=== PATIENT | female | born 1995 | race Hispanic/Latino ===

== ENCOUNTER 2019-10-13 08:33 | Outpatient (CLI) | payer BC ==
--- NOTE | 2019-10-13 10:32 | ULT ---
ULTRASOUND RIGHT BREAST: HISTORY: Breast mass. COMPARISON: Examination from 2016. FINDINGS: Real-time navarrete scale evaluation right breast 1 o'clock was performed. The width of the mass of the right breast 1 o'clock 4 cm from the nipple has decreased now measuring 2.7 cm, previously 2.8 cm. The depth of it has slightly increased now measuring up to 1.7 cm, previo usly 1.1 cm. IMPRESSION: BIRADS 2: benign findings. POS: OFF
== END 2019-10-13 08:34 | disposition home or self-care (01) ==
LOC: BICULT 08:33
PROVIDERS: ATTEND Physician Assistant
DX: N63.10 Unspecified lump in the right breast, unspecified quadrant (principal)